=== PATIENT | female | born 1990 | race African-American/Black ===

== ENCOUNTER 2018-09-13 01:58 | Emergency (ER) | payer SELFPAY ==
[~2018-09-13] VITALS: Ht 149.9 cm; Wt 104.3 kg
--- NOTE | 2018-09-13 02:05 | ED.ADGEN ---
Adult General Chief Complaint Chief Complaint ".. I ve been sick.. .the last day or so with sore throat .. and cough.. ... nausea.. and vomiting for about month... I just don't feel good..." HPI HPI Patient is a 27 year old female who presents with above hx and complaints nausea and vomiting for months. Patient does not remember her last menstrual period. Patient last 24 hours developed cough fever or chills and sore throat. No history of travel or specific ill contacts. Boyfriend has no illness complaints. Patient smokes marijuana daily. No history of trauma. Ate dutch fries at dinner. No history of trauma. No History immunosuppression. Review of Systems Review of Systems Constitutional: Denies fever or chills [] Eyes: Denies change in visual acuity, redness, or eye pain [] HENT: Complains of nasal congestion and sore throat [] Respiratory: Denies cough or shortness of breath [] Cardiovascular: No additional information not addressed in HPI [] GI: Denies abdominal pain, vomiting, bloody stools or diarrhea []complains of nausea : Denies dysuria or hematuria [] Musculoskeletal: Denies back pain or joint pain [] Integument: Denies rash or skin lesions [] Neurologic: Denies headache, focal weakness or sensory changes [] Endocrine: Denies polyuria or polydipsia [] All other systems were reviewed and found to be within normal limits, except as documented in this note. Family History Family History Noncontributory Current Medications Current Medications Current Medications Medications (Trade) Dose Ordered Sig/Jack Start Time Stop Time Status Last Admin Dose Admin Albuterol Sulfate (Ventolin Hfa Inhaler) 2 puff 1X ONCE 09/13/18 03:30 09/13/18 03:31 DC 09/13/18 03:49 2 PUFF Cephalexin HCl (Keflex) 500 mg 1X ONCE 09/13/18 03:30 09/13/18 03:31 DC 09/13/18 03:49 500 MG Diphenhydramine HCl (Benadryl) 50 mg 1X ONCE 09/13/18 03:30 09/13/18 03:31 DC 09/13/18 03:50 50 MG Ibuprofen (Motrin) 400 mg 1X ONCE 09/13/18 03:30 8/3/19 03:31 DC 09/13/18 03:50 400 MG Ondansetron HCl (Zofran Odt) 8 mg 1X ONCE 09/13/18 03:30 09/13/18 03:31 DC 09/13/18 03:50 8 MG Prednisone (Prednisone) 50 mg 1X ONCE 09/13/18 03:30 09/13/18 03:31 DC 09/13/18 03:49 50 MG Allergies Allergies Allergies Coded Allergies Type Severity Reaction Last Updated Verified No Known Drug Allergies 09/13/18 No Physical Exam Physical Exam Constitutional: Moderately acute distress, non-toxic appearance. [] HENT: Normocephalic, atraumatic, bilateral external ears normal, oropharynx moist, injected pharynx, a few small tonsillar crypts, and exudates, nose swollen turbinates and clear rhinorrhea Eyes: PERRLA, EOMI, conjunctiva normal, no discharge. [] Neck: Normal range of motion, no tenderness, supple, no stridor. [] Cardiovascular:Heart rate regular rhythm, no murmur [] Lungs & Thorax: Bilateral breath sounds equal at apexes with a few scattered wheezes auscultation [] Abdomen: Bowel sounds normal, soft, no tenderness, no masses, no pulsatile masses. []Obese Skin: Warm, dry, no erythema, no rash. [] Back: No tenderness, no CVA tenderness. [] Extremities: No tenderness, no cyanosis, no clubbing, ROM intact, no edema. [] Neurologic: Alert and oriented X 3, normal motor function, normal sensory function, no focal deficits noted. [] Psychologic: Affect anxious, judgement normal, mood normal. [] Current Patient Data Vital Signs Vital Signs Date Time Temp Pulse Resp B/P (MAP) Pulse Ox O2 Delivery O2 Flow Rate FiO2 09/13/18 02:30 98.5 78 18 99 Room Air Lab Results Laboratory Tests Test 09/13/18 02:00 09/13/18 02:15 09/13/18 02:22 Urine Collection Type Unknown Urine Color Straw Urine Clarity Hazy Urine pH 5.0 Urine Specific [place] <=1.005 Urine Protein Neg (NEG-TRACE) Urine Glucose (UA) Neg mg/dL (NEG) Urine Ketones (Stick) Neg mg/dL (NEG) Urine Blood Neg (NEG) Urine Nitrite Neg (NEG) Urine Bilirubin Neg (NEG) Urine Urobilinogen Dipstick 0.2 mg/dL (0.2 mg/dL) Urine Leukocyte Esterase Small (NEG) Urine RBC Occ /HPF (0-2) Urine WBC 1-4 /HPF (0-4) Urine Squamous Epithelial Cells Few /LPF Urine Bacteria Mod /HPF (0-FEW) Urine Mucus Slight /LPF Urine Test Negative (NEG) Urine Opiates Screen Neg (NEG) Urine Methadone Screen Neg (NEG) Urine Barbiturates Neg (NEG) Urine Phencyclidine Screen Neg (NEG) Urine Amphetamine/Methamphetamine Neg (NEG) Urine Benzodiazepines Screen Neg (NEG) Urine Cocaine Screen Neg (NEG) Urine Cannabinoids Screen Pos (NEG) Urine Ethyl Alcohol Neg (NEG) Group A Streptococcus Rapid Negative (NEGATIVE) POC Urine HCG, Qualitative hcg negative (Negative) EKG EKG [] Radiology/Procedures Radiology/Procedures [] Course & Med Decision Making Course & Med Decision Making Pertinent Labs and Imaging studies reviewed. (See chart for details) Patient to push vitamin C drinks in clear fluids. Take Zofran for active nausea and vomiting. Take Tylenol and ibuprofen for discomfort. Gargle with Listerine 4 times a day. Follow-up primary care. Take Keflex 500 mg 3 times a day. Follow- up urine cultures. To stop smoking marijuana or at least reduce it use. Advised her the complications of marijuana-induced nausea and vomiting [] Final Impression Final Impression 1. Pharyngitis 2. Viral syndrome 3. Marijuana use 4. History of nausea 5. Urinary tract infection[] Dragon Disclaimer Dragon Disclaimer This electronic medical record was generated, in whole or in part, using a voice recognition dictation system. Discharge Summary Visit Information Final Diagnosis Problems Medical Problems: (1) Urinary tract infection Status: Acute (2) Viral syndrome Status: Acute Brief Hospital Course Allergies Allergies Coded Allergies Type Severity Reaction Last Updated Verified No Known Drug Allergies 09/13/18 No Vital Signs Vital Signs Date Time Temp Pulse Resp B/P (MAP) Pulse Ox O2 Delivery O2 Flow Rate FiO2 09/13/18 02:30 98.5 78 18 99 Room Air Lab Results Laboratory Tests Test 09/13/18 02:00 09/13/18 02:15 09/13/18 02:22 Urine Collection Type Unknown Urine Color Straw Urine Clarity Hazy Urine pH 5.0 Urine Specific [place] <=1.005 Urine Protein Neg (NEG-TRACE) Urine Glucose (UA) Neg mg/dL (NEG) Urine Ketones (Stick) Neg mg/dL (NEG) Urine Blood Neg (NEG) Urine Nitrite Neg (NEG) Urine Bilirubin Neg (NEG) Urine Urobilinogen Dipstick 0.2 mg/dL (0.2 mg/dL) Urine Leukocyte Esterase Small (NEG) Urine RBC Occ /HPF (0-2) Urine WBC 1-4 /HPF (0-4) Urine Squamous Epithelial Cells Few /LPF Urine Bacteria Mod /HPF (0-FEW) Urine Mucus Slight /LPF Urine Test Negative (NEG) Urine Opiates Screen Neg (NEG) Urine Methadone Screen Neg (NEG) Urine Barbiturates Neg (NEG) Urine Phencyclidine Screen Neg (NEG) Urine Amphetamine/Methamphetamine Neg (NEG) Urine Benzodiazepines Screen Neg (NEG) Urine Cocaine Screen Neg (NEG) Urine Cannabinoids Screen Pos (NEG) Urine Ethyl Alcohol Neg (NEG) Group A Streptococcus Rapid Negative (NEGATIVE) Bedside Urine HCG, Qualitative hcg negative (Negative) Brief Hospital Course Ms. Larson is a 27 old female who presented with pharyngitis-viral syndrome Discharge Information Condition at Discharge: Stable Disposition/Orders: D/C to Home Dischare Medications Current Medications Prednisone (Prednisone) 50 mg 1X ONCE PO Last administered on 09/13/18at 03:49; Admin Dose 50 MG; Start 09/13/18 at 03:30; Stop 09/13/18 at 03:31; Status DC Diphenhydramine HCl (Benadryl) 50 mg 1X ONCE PO Last administered on 09/13/18at 03:50; Admin Dose 50 MG; Start 09/13/18 at 03:30; Stop 09/13/18 at 03:31; Status DC Ibuprofen (Motrin) 400 mg 1X ONCE PO Last administered on 09/13/18at 03:50; Admin Dose 400 MG; Start 09/13/18 at 03:30; Stop 09/13/18 at 03:31; Status DC Cephalexin HCl (Keflex) 500 mg 1X ONCE PO Last administered on 09/13/18at 03:49; Admin Dose 500 MG; Start 09/13/18 at 03:30; Stop 09/13/18 at 03:31; Status DC Ondansetron HCl (Zofran Odt) 8 mg 1X ONCE PO Last administered on 09/13/18at 03:50; Admin Dose 8 MG; Start 09/13/18 at 03:30; Stop 09/13/18 at 03:31; Status DC Albuterol Sulfate (Ventolin Hfa Inhaler) 2 puff 1X ONCE INH Last administered on 09/13/18at 03:49; Admin Dose 2 PUFF; Start 09/13/18 at 03:30; Stop 09/13/18 at 03:31; Status DC Active Scripts Active Zofran (Ondansetron Hcl) 8 Mg Tablet 8 Mg PO QIDPRN PRN Keflex (Cephalexin) 500 Mg Capsule 500 Mg PO TID 7 Days Rehana Disclaimer This chart was dictated in whole or in part using Voice Recognition software in a busy, high-work load, and often noisy Emergency Department environment. It may contain unintended and wholly unrecognized errors or omissions. NOAH GIBSON MD Sep 13, 2018 02:05
[2018-09-13 02:30] VITALS: BP 150/77
[2018-09-13 02:58] LABS: AMPHETAMINE/METHAMPHETAMINE NEG (NEG); BARBITURATES NEG (NEG); BENZODIAZEPINES NEG (NEG); CANNABINOIDS POS (NEG); COCAINE NEG (NEG); METHADONE NEG (NEG); OPIATES NEG (NEG); PHENCYCLIDINE NEG (NEG)
[2018-09-13 03:02] LABS: BACTERIA,URINE MOD /HPF (0-FEW); BILIRUBIN,URINE NEG (NEG); CLARITY,URINE HAZY; COLOR,URINE STRAW; GLUCOSE,URINE NEG (NEG); NITRITE,URINE NEG (NEG); RBC,URINE OCC /HPF (0-2); UROBILINOGEN,URINE 0.2 mg/dL (0.2 mg/dL)
[2018-09-13 03:03] LABS: SQUAMOUS EPITHELIAL CELL,UR FEW /LPF; U PREG PATIENT NEGATIVE (NEG)
[2018-09-13] MEDS ORDERED: ONDA8TAB9 PO (03:13)
[2018-09-13] MEDS ORDERED: CEPH-264 PO (03:13)
[2018-09-13] MEDS ORDERED: ALBUTEROL SULFATE 8GM INHALER. INH ONE (03:30)
[2018-09-13] MEDS ORDERED: IBUPROFEN 400 MG TABLET. PO ONE (03:30)
[2018-09-13] MEDS ORDERED: ONDANSETRON ODT 4 MG TAB.RAPDIS PO ONE (03:30)
[2018-09-13] MEDS ORDERED: CEPHALEXIN 250 MG CAPSULE PO ONE (03:30)
[2018-09-13] MEDS ORDERED: predniSONE 10 MG TABLET PO ONE (03:30)
[2018-09-13] MEDS ORDERED: diphenhydrAMINE HCL 25 MG CAPSULE PO ONE (03:30)
== END 2018-09-13 03:50 | disposition home or self-care (01) ==
LOC: ER 01:58
DX: N39.0 Urinary tract infection, site not specified (principal); B34.9 Viral infection, unspecified; F12.10 Cannabis abuse, uncomplicated
CPT/HCPCS: 36415; 80307; 81001; 81025; 87070; 87086; 87880; 94640; 99284; J7512; J7613; Q0162; Q0163

== ENCOUNTER 2018-10-18 02:17 | Emergency (ER) | payer SELFPAY ==
[~2018-10-18] VITALS: Ht 149.9 cm; Wt 104.3 kg
[~2018-10-18 02:17] MED LIST: CEPH-264 PO; ONDA8TAB9 PO
--- NOTE | 2018-10-18 02:23 | ED.ADGEN ---
Past History Past Medical History: Asthma, GERD Past Surgical History: Knee Replacement, Other Alcohol Use: None Drug Use: Marijuana Adult General Chief Complaint Chief Complaint ".. My asthma is kicking up.... I got a sore throat....".." I got runny nose..".. " I got a cough.. and it hurts when I cough a lot...".. "This started yesterday... ".. "I had asthma a lot when I was a kid..." HPI HPI Patient is a 28 year old female who presents with above hx and complaints of sore throat, nonproductive cough, wheezing, and congestion. Patient denies any travel or specific ill contacts. Patient denies any history immunosuppression. Patient has not been admitted for asthma such as a child. Patient normally gets all her care at [facility] the [facility]. Recently moved to [facility]. No history immunosuppression. Does have a history of obesity and bilateral knee surgeries. She does not know her best peak flow.. Review of Systems Review of Systems Constitutional: Denies fever or chills [] Eyes: Denies change in visual acuity, redness, or eye pain [] HENT: Complains of nasal congestion and sore throat [] Respiratory: Complains of cough and wheezing Cardiovascular: No additional information not addressed in HPI [] GI: Denies abdominal pain, nausea, vomiting, bloody stools or diarrhea [] : Denies dysuria or hematuria [] Musculoskeletal: Denies back pain or joint pain [] Integument: Denies rash or skin lesions [] Neurologic: Denies headache, focal weakness or sensory changes [] Endocrine: Denies polyuria or polydipsia [] All other systems were reviewed and found to be within normal limits, except as documented in this note. Family History Family History Asthma Current Medications Current Medications Current Medications Medications (Trade) Dose Ordered Sig/Jack Start Time Stop Time Status Last Admin Dose Admin Albuterol Sulfate (Ventolin Hfa Inhaler) 2 puff 1X ONCE 10/18/18 02:30 10/18/18 03:16 DC 10/18/18 03:01 2 PUFF Albuterol/ Ipratropium (Duoneb) 3 ml 1X ONCE 10/18/18 03:00 10/18/18 03:16 DC 10/18/18 03:01 3 ML Diphenhydramine HCl (Benadryl) 50 mg 1X ONCE 10/18/18 02:45 10/18/18 03:16 DC 10/18/18 02:44 50 MG Prednisone (Prednisone) 20 mg STK-MED ONCE 10/18/18 02:41 10/18/18 02:41 DC Allergies Allergies Allergies Coded Allergies Type Severity Reaction Last Updated Verified No Known Drug Allergies 09/13/18 No Physical Exam Physical Exam Constitutional: Moderate acute distress, non-toxic appearance. [] HENT: Normocephalic, atraumatic, bilateral external ears normal, oropharynx moist, pharyngeal injection, no oral exudates, nose swollen turbinates with clear rhinorrhea Eyes: PERRLA, EOMI, conjunctiva normal, no discharge. [] Neck: Normal range of motion, no tenderness, supple, no stridor. [] Cardiovascular:Heart rate regular rhythm, no murmur [] Lungs & Thorax: Bilateral breath sounds at apexes and a few scattered wheezes on auscultation [] Abdomen: Bowel sounds normal, soft, no tenderness, no masses, no pulsatile masses. []Morbidly obese Skin: Warm, dry, no erythema, no rash. [] Back: No tenderness, no CVA tenderness. [] Extremities: No tenderness, no cyanosis, no clubbing, ROM intact, ankle edema. [] Bilateral knee scars Neurologic: Alert and oriented X 3, normal motor function, normal sensory function, no focal deficits noted. [] Psychologic: Affect anxious, judgement normal, mood normal. [] Current Patient Data Vital Signs Vital Signs Date Time Temp Pulse Resp B/P (MAP) Pulse Ox O2 Delivery O2 Flow Rate FiO2 10/18/18 03:17 100 Room Air 10/18/18 02:35 98.4 94 18 Lab Results Laboratory Tests Test 10/18/18 02:45 10/18/18 02:50 10/18/18 03:06 Urine Collection Type Unknown Urine Color Colorless Urine Clarity Hazy Urine pH 5.5 Urine Specific [place] <=1.005 Urine Protein Neg (NEG-TRACE) Urine Glucose (UA) Neg mg/dL (NEG) Urine Ketones (Stick) Neg mg/dL (NEG) Urine Blood Neg (NEG) Urine Nitrite Neg (NEG) Urine Bilirubin Neg (NEG) Urine Urobilinogen Dipstick 0.2 mg/dL (0.2 mg/dL) Urine Leukocyte Esterase Neg (NEG) Urine RBC Occ /HPF (0-2) Urine WBC 0 /HPF (0-4) Urine Squamous Epithelial Cells Mod /LPF Urine Bacteria Few /HPF (0-FEW) Urine Mucus Slight /LPF Urine Opiates Screen Neg (NEG) Urine Methadone Screen Neg (NEG) Urine Barbiturates Neg (NEG) Urine Phencyclidine Screen Neg (NEG) Urine Amphetamine/Methamphetamine Neg (NEG) Urine Benzodiazepines Screen Neg (NEG) Urine Cocaine Screen Neg (NEG) Urine Cannabinoids Screen Pos (NEG) Urine Ethyl Alcohol Neg (NEG) Group A Streptococcus Rapid Negative (NEGATIVE) POC Urine HCG, Qualitative hcg negative (Negative) EKG EKG [] Radiology/Procedures Radiology/Procedures [] Course & Med Decision Making Course & Med Decision Making Pertinent Labs and Imaging studies reviewed. (See chart for details). Use MDI 2 puffs 4 times a day. Take prednisone 50 mg a day for 5 days. Gargle with Listerine 4 times a day. Take Benadryl 50 mg up to 4 times a day for drainage and congestion. Follow-up primary care. [] Final Impression Final Impression 1. Asthma exacerbation 2. Pharyngitis[] 3. Viral syndrome Dragon Disclaimer Dragon Disclaimer This electronic medical record was generated, in whole or in part, using a voice recognition dictation system. NOAH GIBSON MD Oct 18, 2018 02:23
[2018-10-18] MEDS ORDERED: predniSONE 10 MG TABLET PO ONE (02:30)
[2018-10-18] MEDS ORDERED: ALBUTEROL SULFATE 8GM INHALER. INH ONE (02:30)
[2018-10-18 02:35] VITALS: BP 130/73
[2018-10-18] MEDS ORDERED: predniSONE 20 MG TABLET ONE (02:41)
[2018-10-18] MEDS ORDERED: diphenhydrAMINE HCL 25 MG CAPSULE PO ONE (02:45)
[2018-10-18] MEDS ORDERED: PRED50TA PO (02:48)
[2018-10-18] MEDS ORDERED: IPRATRPIUM/ALBUTEROL 0.5/2.5MG 3 ML NEBU. NEB ONE (03:00)
[2018-10-18 03:54] LABS: BILIRUBIN,URINE NEG (NEG); CLARITY,URINE HAZY; COLOR,URINE COLORLESS; GLUCOSE,URINE NEG (NEG)
[2018-10-18 03:55] LABS: BACTERIA,URINE FEW /HPF (0-FEW); NITRITE,URINE NEG (NEG); RBC,URINE OCC /HPF (0-2); SQUAMOUS EPITHELIAL CELL,UR MOD /LPF; UROBILINOGEN,URINE 0.2 mg/dL (0.2 mg/dL); WBC,URINE 0 /HPF (0-4)
[2018-10-18 03:58] LABS: BARBITURATES NEG (NEG); BENZODIAZEPINES NEG (NEG); CANNABINOIDS POS (NEG); COCAINE NEG (NEG); METHADONE NEG (NEG); OPIATES NEG (NEG); PHENCYCLIDINE NEG (NEG)
[2018-10-18 04:00] LABS: AMPHETAMINE/METHAMPHETAMINE NEG (NEG)
== END 2018-10-18 03:58 | disposition home or self-care (01) ==
LOC: ER 02:17
DX: J45.901 Unspecified asthma with (acute) exacerbation (principal); B34.9 Viral infection, unspecified; J02.9 Acute pharyngitis, unspecified; K21.9 Gastro-esophageal reflux disease without esophagitis
CPT/HCPCS: 36415; 80307; 81001; 81025; 87070; 87880; 94640; 99284; J7512; J7613; J7620; Q0163